=== PATIENT | male | born 1980 | race Caucasian/White ===

== ENCOUNTER 2019-06-23 20:40 | Emergency (ER) | payer OTHER ==
[~2019-06-23] VITALS: Ht 175.3 cm; Wt 97.5 kg
[2019-06-23 20:53] VITALS: BP 153/85
[2019-06-23] MEDS ORDERED: XANAX 0.5 MG0.5 MG PO ×2 (20:58→21:29)
[2019-06-23] MEDS ORDERED: AMOXICILLIN 50500 MG PO (21:29)
== END 2019-06-23 21:36 | disposition home or self-care (01) ==
LOC: M.ERS 20:40
DX: H66.92 Otitis media, unspecified, left ear (principal); F41.9 Anxiety disorder, unspecified; F43.10 Post-traumatic stress disorder, unspecified; Z76.0 Encounter for issue of repeat prescription